=== PATIENT | male | born 1995 | race Caucasian/White ===

== ENCOUNTER 2019-06-15 20:28 | Emergency (ER) | payer BC ==
--- NOTE | 2019-06-15 20:59 | ED Physician Documentation ---
General Adult - HISTORIAN Historian: patient - HPI Stated Complaint: cold sx, sob Chief Complaint: General Adult Onset: hours Timing: still present Severity: moderate Further Comments: yes (Pt is a 24 yo male with sob. He has had sx of a cold for several days. 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 Pt takes no meds.) - ROS CONST: other (malaise) EYES/ENT: sore throat, nasal drainage, nasal congestion CVS/RESP: shortness of breath, cough GI/: none MS/SKIN/LYMPH: none - PAST HX Past History: other (seizures in childhood x 2; ? autism or autism spectrum d/o.) Allergies/Adverse Reactions: Allergies Allergy/AdvReac Type Severity Reaction Status Date / Time No Known Allergies Allergy Verified 06/15/19 21:27 Home Medications: Ambulatory Orders Medication Instructions Recorded NK 06/15/19 - SOCIAL HX Smoking History: cigarettes (1/2 ppd) - FAMILY HX Family History: No - REVIEWED ASSESSMENTS Nursing Assessment Reviewed: Yes Vitals Reviewed: Yes Progress - Progress Progress: Duoneb HFN NS 1 L IVF Solu-medrol 125 mg IV Albuterol HFN d/c instructions: Rx Azithromycin 250 mg. Take one by mouth once daily for 5 days. Rx Albuterol (90 mcg/spray) MDI. Take 2 puffs every 4 to 6 hours as needed for wheezing. Rx Codeine/Guaifenesin (10mg/100mg/5ml). Take 10 ml by mouth every 4 to 6 hours as needed for cough. Do not drive while taking this medication. (1 dose --> home.) Rx Prednisone 50 mg. Take one daily for 4 days. - EKG/XRAY/CT XRAY: chest (No acute pulmonary process.) General Adult Physical Exam - PHYSICAL EXAM GENERAL APPEARANCE: moderate distress EENT: pharynx normal NECK: normal inspection, supple. No: lymphadenopathy RESPIRATORY: wheezes, rhonchi CVS: reg rate & rhythm, heart sounds normal ABDOMEN: soft, no organomegaly, normal bowel sounds BACK: normal inspection, no CVA tenderness SKIN: warm/dry, normal color EXTREMITIES: non-tender, normal range of motion, no evidence of injury NEURO: oriented X3, motor nml, sensation nml Discharge Clincal Impression: Bronchitis, sinus pressure Referrals: Primary Doctor,No [Primary Care Provider] - Condition: Stable Disposition: 01 HOME, SELF-CARE Decision to Admit: NO Decision Time: 22:36
[2019-06-15] MEDS: IPRATROPIUM/ALBUTEROL SULFATE 3 ML AMPUL.NEB NEB ONE (21:33)
[2019-06-15 21:50] LABS: SEGMENTED NEUTROPHILS % 65 % (39-79)
[2019-06-15 21:51] LABS: eGFR (Non-African) > 60
--- NOTE | 2019-06-15 22:00 | Diagnostic Imaging Report ---
MANFRED HERNANDEZ [facility] [address] [facility] [address] [place], [place]. [address] Report Submission Date: Jun 15, 2019 9:39:18 PM CDT Patient Study Name: AMADA MELVIN Date: Jun 15, 2019 9:19:33 PM CDT Modality Type: DX Gender: M Description: CHEST 2VIEW : 89 Institution: [facility] Physician: MANFRED HERNANDEZ Examination: PA and lateral chest. History: Evaluate lung rios. SOB Comparison exam: None available. Findings: PA and lateral views of the chest demonstrates a normal cardiac and mediastinal silhouette. No focal infiltrate. No blunting of the costophrenic margins. Old right-sided rib fractures. Impression: No acute pulmonary process. Electronically signed on Jun 15, 2019 9:39:18 PM CDT by: Ifeanyi CORDOVA
[2019-06-15] MEDS: methylPREDNISolone SOD SUCC 125 MG/2 ML VIAL IVP ONE (22:05)
[2019-06-15] MEDS: 0.9 % SODIUM CHLORIDE 1,000 ML IV ONE (22:09)
[2019-06-15] MEDS: AZITHROMYCIN 250 MG TABLET PO ONE (22:38)
[2019-06-15] MEDS: ALBUTEROL SULFATE 2.5 MG/3 ML AMPUL.NEB NEB ONE (22:38)
[2019-06-16 03:41] VITALS: BP 142/76
== END 2019-06-15 22:55 | disposition home or self-care (01) ==
LOC: ED 20:28
DX: J40 Bronchitis, not specified as acute or chronic (principal); J01.90 Acute sinusitis, unspecified; F17.210 Nicotine dependence, cigarettes, uncomplicated
CPT/HCPCS: 71046; 80053; 85025; 85379; 94640; 96361; 96374; 99284; J2930; J7030; S1016